=== PATIENT | female | born 1950 | race Caucasian/White ===

== ENCOUNTER → 2018-04-05 | Day surgery (SDC) | payer MEDICARE, OTHER ==
[2018-04-04 17:07] LABS: BASOPHILS % 0.5 % (0.0-1.0); EOSINOPHILS # (AUTO) 0.2 (0.0-0.4); EOSINOPHILS % 3.8 % (0.0-6.0); HEMATOCRIT 39.4 % (34.2-44.1); LYMPHOCYTES # (AUTO) 1.3 (1.0-3.2); LYMPHOCYTES % 21.1 % (18.0-39.1); MEAN CORPUSCULAR HEMOGLOBIN 30.3 pg (28-32); MEAN CORPUSCULAR VOLUME 91.8 fL (81-99); MONOCYTES # (AUTO) 0.7 (0.2-0.8); NEUTROPHILS # (AUTO) 3.9 (2.1-6.9); NEUTROPHILS % 63.3 % (38.7-80.0); PLATELET COUNT 311 x10e3/uL (140-360); RED BLOOD COUNT 4.29 x10e6/uL (3.6-5.1); RED CELL DISTRIBUTION WIDTH 13.2 % (11.7-14.4)
[~2018-04-05] MED LIST: ACIPHEX20 MG PO; ALLEGRA ALLERG180 MG PO; ATORVASTATIN CA20 MG PO; CENTRUM SILVER1 EAC3 PO; CO Q-10200 MG PO; DITROPAN XL10 MG PO; ESIDRIX25 MG PO; ETODOLAC500 M1 PO; FENOFIBRATE145 MG PO; FENTANYL CITRATE/PF 100MCG/2 ML INJ ONE; FUROSEMIDE20 MG PO; GLIPIZIDE-METF1 EAC2 PO; KETAMINE HCL INJ 50 MG/ML 10 ML VIAL ONE; LANTUS 3ML100 UNITS/ SQ; LEVOTHYROXINE75 MCG PO; LIDOCAINE HCL 2% LOCAL INJ 5 ML SDV VIAL INJ ONE; LISINOPRIL40 MG PO; METOPROLOL SUCC50 MG PO; MIDAZOLAM HCL 2 MG/2 ML VIAL ONE; MYRBETRIQ25 MG PO; PIOGLITAZONE HC45 MG PO; PROPOFOL IV EMULSION 10 MG/ML 20 ML VIAL ONE; VITAMIN B-121000 MCG PO
--- NOTE | 2018-04-05 11:07 | Operative Report ---
DATE OF PROCEDURE: April 05, 2018 PROCEDURE PERFORMED: Colonoscopy. PREOPERATIVE DIAGNOSES 1. History of colon cancer. 2. History of colon polyps. POSTOPERATIVE DIAGNOSES 1. Colon polyp in sigmoid colon. 2. Diverticulosis in sigmoid and descending colon. The anastomosis on the right side is free of any tumor recurrence. PREOPERATIVE MEDICATIONS: Consisted of MAC anesthesia. PROCEDURE: Using an Pixtronix video colonoscope, it was inserted into the patient's rectum and advanced without difficulty to the level of the anastomosis. The ileum was then entered. The colonoscope was withdrawn from that level back to the rectum. In the sigmoid colon, there was a 4 mm size polyp, which was removed with the hot biopsy forceps. Diverticula were present in the sigmoid and descending colon. The colonoscope was then withdrawn from the rectum. The procedure was ended. Job#: [id number]
== END | disposition home or self-care (01) ==
LOC: OR 08:04
PROVIDERS: ATTEND Internal Medicine Gastroenterology
DX: Z08 Encounter for follow-up examination after completed treatment for malignant neoplasm (principal); Z85.038 Personal history of other malignant neoplasm of large intestine; K63.5 Polyp of colon; Z98.0 Intestinal bypass and anastomosis status; K57.30 Diverticulosis of large intestine without perforation or abscess without bleeding; K59.00 Constipation, unspecified; K44.9 Diaphragmatic hernia without obstruction or gangrene; K21.0 Gastro-esophageal reflux disease with esophagitis; E11.22 Type 2 diabetes mellitus with diabetic chronic kidney disease; I12.9 Hypertensive chronic kidney disease with stage 1 through stage 4 chronic kidney disease, or unspecified chronic kidney disease; N18.9 Chronic kidney disease, unspecified; E03.9 Hypothyroidism, unspecified; E66.01 Morbid (severe) obesity due to excess calories; R06.09 Other forms of dyspnea; I45.10 Unspecified right bundle-branch block; Z88.5 Allergy status to narcotic agent; Z88.0 Allergy status to penicillin; Z88.2 Allergy status to sulfonamides; Z79.4 Long term (current) use of insulin; Z01.810 Encounter for preprocedural cardiovascular examination; Z01.812 Encounter for preprocedural laboratory examination; Z68.43 Body mass index [BMI] 50.0-59.9, adult; Z80.0 Family history of malignant neoplasm of digestive organs
CPT/HCPCS: 36415 ×2; 45384; 82948; 85025; 88305; 93005; J2001; J2250